=== PATIENT | male | born 1935 | race Caucasian/White ===

== ENCOUNTER → 2019-03-27 | Day surgery (SDC) | payer MEDICARE, OTHER ==
[2013-06-26 14:33] VITALS: BP 144/81
[~2019-03-27] MED LIST: ADVAIR IH; BENICAR20 MG PO; CRESTOR 10MG10 MG PO; LEVOTHYROXINE0.1 MG PO; MULTIVITAMIN FO1 CAP PO; SAW PALMETTO S450 MG PO
== END ==
LOC: MSO 08:00
DX: Z12.11 Encounter for screening for malignant neoplasm of colon (principal); Z86.010 Personal history of colon polyps; I10 Essential (primary) hypertension; E03.9 Hypothyroidism, unspecified; J45.909 Unspecified asthma, uncomplicated; E78.00 Pure hypercholesterolemia, unspecified; Z79.899 Other long term (current) drug therapy; M19.90 Unspecified osteoarthritis, unspecified site
CPT/HCPCS: G0105; 00812; J2704; J7120